=== PATIENT | female | born 1990 | race Caucasian/White ===

== ENCOUNTER 2018-05-16 19:45 | Emergency (ER) | payer SELFPAY ==
[~2018-05-16] VITALS: Ht 180.3 cm; Wt 69.0 kg
[2018-05-16] MEDS ORDERED: SODIUM CHLORIDE 0.9% 1,000 ML IV ONE (23:31)
[2018-05-16 23:35] VITALS: BP 120/74
[2018-05-16] MEDS ORDERED: LORAZEPAM 2MG/ML CPJ IV ONE (23:45)
[2018-05-16] MEDS ORDERED: ONDANSETRON HCL 4MG/2ML INJ IV ONE (23:45)
[2018-05-17 00:17] LABS: BASOPHILS % 0.3 % (0.0-2.0); EOSINOPHILS % 0.4 % (0.0-5.0); HEMATOCRIT. 43.1 % (36.0-48.0); HEMOGLOBIN. 14.2 g/dL (12.0-16.0); LYMPHOCYTES % 33.7 % (20.0-50.0); MEAN CORPUSCULAR HEMOGLOBIN 28.7 pg (28.0-32.0); MEAN CORPUSCULAR VOLUME 87.2 fL (81.0-99.0); MEAN PLATELET VOLUME 8.3 fl (7.4-10.4); MONOCYTES % 9.3 % (2.0-8.0); NEUTROPHILS % 56.3 % (40.0-76.0); PLATELET 273 x1000/uL (130-400); RED BLOOD CELL COUNT 4.95 mill/uL (4.2-5.4); RED CELL DISTRIBUTION WIDTH 13.8 % (11.6-14.6)
[2018-05-17 00:45] LABS: CHLORIDE 102 mEq/L (98-107)
[2018-05-17 00:49] LABS: ETHANOL BLOOD < 10 mg/dL
[2018-05-17 00:59] LABS: *BARBITURATES SCREEN URINE NEGATIVE (NEGATIVE); *BENZODIAZEPINES SCREEN URINE NEGATIVE (NEGATIVE); *COCAINE SCREEN URINE NEGATIVE (NEGATIVE); METHADONE URINE SCREEN NEGATIVE (NEGATIVE)
[2018-05-17 01:00] LABS: CANNABINOID URINE SCREEN NEGATIVE (NEGATIVE); OPIATES URINE SCREEN NEGATIVE (NEGATIVE); PHENCYCLIDINE URINE SCREEN NEGATIVE (NEGATIVE)
[2018-05-17 01:07] LABS: *AMPHETAMINES SCREEN URINE PRESUMTIVE POSITIVE (NEGATIVE)
[2018-05-17 01:32] LABS: HCG SCREEN NEGATIVE
== END 2018-05-17 00:25 | disposition left against medical advice (07) ==
LOC: ER 19:45
DX: T43.621A Poisoning by amphetamines, accidental (unintentional), initial encounter (principal); R00.2 Palpitations; Y92.29 Other specified public building as the place of occurrence of the external cause; F41.9 Anxiety disorder, unspecified; F17.210 Nicotine dependence, cigarettes, uncomplicated
CPT/HCPCS: 36415; 80053; 80305; 83880; 84484; 84703; 85025; 93005; 99284; G0482; J7030